=== PATIENT | male | born 1985 | race Two or more races ===

== ENCOUNTER 2016-12-16 11:33 | Emergency (ER) | payer OTHER ==
[~2016-12-16] VITALS: Ht 170.2 cm; Wt 81.6 kg
[2016-12-16 11:39] VITALS: BP 149/82
[2016-12-16] MEDS ORDERED: TETANUS-DIPTH-ACEL PERTUSSIS 0.5ML SYRG IM ONE (14:45)
== END 2016-12-16 14:50 | disposition home or self-care (01) ==
LOC: ER 11:46
DX: S61.012A Laceration without foreign body of left thumb without damage to nail, initial encounter (principal); W26.0XXA Contact with knife, initial encounter; Y93.89 Activity, other specified; Y99.8 Other external cause status; Y92.89 Other specified places as the place of occurrence of the external cause
CPT/HCPCS: 12002; 90471; 90715